=== PATIENT | male | born 1995 | race African-American/Black ===

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

== ENCOUNTER 2017-06-10 10:38 | Emergency (ER) | payer MEDICAID ==
[~2017-06-10] VITALS: Ht 180.3 cm; Wt 59.0 kg
--- NOTE | ~2017-06-10 | CT71 ---
[facility] A Service [facility] RADIOLOGY TEXT RESULTS PATIENT: JORGE L PORTILLO LOCATION: [facility] : 97 UNIT #: [id number] AGE: [address]: Juli Granado APRN SEX: M ORDER DR: [id number] [facility] [address] [place], [place] [address] [id number] E MR#: [id number] Acc #: [id number] NAME: JORGE L PORTILLO : 1995 SEX: M STUDY DATE/TIME: 06/10/2017 12:03 UNIT: [facility] ROOM: STUDY DESCRIPTION: CT Head Wo Contrast Attending Physician: Juli Granado A.P.R.N. Ordering Physician: Juli Granado A.P.R.N. Primary Care Physician: Primary Care Physician No MEDICAL IMAGING REPORT This report is preliminary unless electronic signature is present EXAM CT head without contrast INDICATIONS Persistent headache to 3 years as well as left-sided head pain for [address] images were obtained from vertex of the skull through skull base of the contrast material was administered. The CT exam was performed with one or more of the following radiation dose reduction techniques: automatic exposure control, adjustment of mA and/or kV according to patient size, and iterative reconstruction. FINDINGS No acute intracranial hemorrhage is identified. Brain parenchyma is normal in attenuation without focal areas of decreased attenuation seen. There is no midline shift or mass effect. No focal areas of decreased attenuation are identified. This patient has some inspissated secretions seen within the right ethmoid sinus. Remainder of the visualized paranasal sinuses and mastoid air cells appear clear. No aggressive osseous abnormalities are seen. There are no focal soft tissue abnormalities. IMPRESSION 1. No acute intracranial process identified. Specifically there is no evidence of acute hemorrhage, mass lesion or acute infarct. 2. Sinus inflammatory changes as noted above. Dictated by... Rena Stacy M.D. THIS IS AN ELECTRONICALLY VERIFIED REPORT [facility] A Service of [facility] RADIOLOGY TEXT RESULTS PATIENT: JORGE L PORTILLO LOCATION: [facility] : 97 UNIT #: [id number] AGE: [address]: Juli Granado APRN SEX: M ORDER DR: Rena Stacy M.D. at 06/11/2017 5:04 PM AFF/capri TD: 06/11/2017 11:40 JOB #: [id number] MEDICAL IMAGING REPORT Page 1 of 1 COPY
== END 2017-06-10 13:00 | disposition home or self-care (01) ==
LOC: CFTX 10:38 → CED 10:38 → CFTX 11:39
DX: J32.9 Chronic sinusitis, unspecified (principal); F17.210 Nicotine dependence, cigarettes, uncomplicated; Z88.6 Allergy status to analgesic agent
CPT/HCPCS: 70450; 96372; 99284; J1885